=== PATIENT | female | born 1955 | race Caucasian/White ===

== ENCOUNTER → 2019-03-11 09:32 | Outpatient (BNVA) | payer MEDICAID, SELFPAY | PROVIDERS: Family Provider Nurse Practitioner; PCP Nurse Practitioner; Visit Provider Nurse Practitioner Family | DX: R51 Headache (principal); R82.90 Unspecified abnormal findings in urine | CPT/HCPCS: 81003 ==

== ENCOUNTER 2019-04-03 12:02 | Outpatient (CLI) | payer MEDICAID, SELFPAY ==
--- NOTE | 2019-04-03 12:30 | XRR_ITS ---
PROCEDURE INFORMATION: Exam: XR Abdomen, 1 View Exam date and time: 04/03/2019 12:27 PM Age: 63 years old Clinical indication: Other: Left flank pain; Prior surgery; Surgery date: 6+ months; Surgery type: Hysto, appy TECHNIQUE: Imaging protocol: XR of the abdomen. Views: Frontal supine view of the abdomen. 1 View. COMPARISON: CR XR KUB [id number] 05/12/2018 12:18 PM FINDINGS: Gastrointestinal tract: Unremarkable. No bowel dilation. Intraperitoneal space: Right mid abdominal bilateral upper pelvic surgical clips. Organs: The gallbladder is likely surgically absent, with metallic clips overlying the gallbladder fossa. Vasculature: Right pelvic phleboliths. Bones/joints: No acute abnormality identified. XR/XR KUB [id number] IMPRESSION: 1. No acute abdominal or pelvic abnormality identified. 2. Prior cholecystectomy. 3. Additional postoperative changes as above.
== END 2019-04-03 12:03 | disposition home or self-care (01) ==
LOC: RAD 12:14
PROVIDERS: Family Provider Nurse Practitioner; PCP Nurse Practitioner; Visit Provider Nurse Practitioner Family
DX: R10.9 Unspecified abdominal pain (principal); Z90.49 Acquired absence of other specified parts of digestive tract; Z87.442 Personal history of urinary calculi
CPT/HCPCS: 74018; 81001

== ENCOUNTER 2019-04-17 12:22 | Outpatient (CLI) | payer MEDICAID, SELFPAY ==
--- NOTE | 2019-04-17 12:30 | XR_ITS ---
WS: [id number] KUB, 04/17/2019 Clinical Data: Flank Pain Comparison: KUB, 04/03/2019 Findings: No abnormal intraabdominal masses or calcifications are seen. There is no dilatated small bowel or ev idence of obstruction. There is fecal material in a sending colon, transverse colon, and descending colon. There are surgica l clips on both sides of the abdomen. Clips from a cholecystectomy are noted. No renal or ureteral ca lculi are seen. There is a phlebolith in the right side of the true pelvis. Degenerative changes of t he L4-L5 disc level and L5 vertebral body are noted. XR/XR KUB [id number] Impression: Moderate amount of fecal material throughout colon.
== END 2019-04-17 12:23 | disposition home or self-care (01) ==
LOC: RAD 12:23
PROVIDERS: Family Provider Nurse Practitioner; PCP Nurse Practitioner; Visit Provider Urology
DX: R10.9 Unspecified abdominal pain (principal)
CPT/HCPCS: 74018; 81001; 82365

== ENCOUNTER 2019-08-25 09:01 | Outpatient (CLI) | payer MEDICAID, SELFPAY ==
--- NOTE | 2019-08-25 09:10 | MM_ITS ---
WS: [id number] RIGHT DIGITAL MAMMOGRAPHY WITH CAD CLINICAL INFORMATION: HX OF BREAST C COMPARISON: February 02, 2018 TECHNIQUE: 6 views of the right breast were obtained. FINDINGS: Scattered fibroglandular densities of the right breast. Right breast implant. Implant appears slightl y decompressed with slight capsular irregularity in particular on the MLO view compared to 2018 sugge stive of partial decompression. Recommend clinical correlation. No suspicious focal mass, asymmetry, calcifications, or architectural distortion. No evidence of cait gnancy. MM/[place] [id number] IMPRESSION: BI-RADS: 2-Benign FOLLOW UP: 1 Year Follow-up Recommend return to annual diagnostic mammography. Right breast implant appears slightly decompressed compared to 2018. Recommen d clinical correlation.
== END 2019-08-25 09:02 | disposition home or self-care (01) ==
PROVIDERS: PCP Family Medicine; Visit Provider Family Medicine
DX: Z85.3 Personal history of malignant neoplasm of breast (principal)
CPT/HCPCS: 77065

== ENCOUNTER 2023-08-10 15:19 | Emergency (ER) | payer MEDICARE, MEDICAID, SELFPAY ==
[2023-08-10] VITALS (12 sets, daily range): BP systolic 112–165; BP diastolic 53–84; PULSE 65–70; RESP 16–18; TEMP 37; O2SAT 95–98; BMI 36.0
--- NOTE | 2023-08-10 16:34 | ECG_ITS ---
[facility] Test Date: 2023-08-10 Pat Name: Deidre Bryant Department: Room: Gender: Female [employer]: : 1955 Requested By: Khalif Mane Order Number: [id number] Vargas MD: Mark Dennis M.D. Measurements Intervals [place] Rate: 61 P: 54 UT: 151 QRS: -51 QRSD: 129 T: 5 QT: 462 QTc: 469 Interpretive Statements SINUS RHYTHM RIGHT BUNDLE BRANCH BLOCK [120+ ms QRS DURATION, UPRIGHT V1, 40+ ms S IN I/aVL/V4/V5/V6] LEFT ANTERIOR FASCICULAR BLOCK [QRS AXIS <= -45, QR IN I, RS IN II] MODERATE VOLTAGE CRITERIA FOR LVH, CONSIDER NORMAL VARIANT [MEETS CRITERIA IN ONE OF: R(aVL), S(V1), R(V5), R(V5/V6)+S(V1)] Compared to ECG 11/27/2018 14:54:29 Right bundle-branch block now present Left anterior fascicular block now present Sinus bradycardia no longer present Left-axis deviation no longer present Incomplete right bundle-branch block no longer present Electronically Signed On 08-10-2023 16:44:06 CDT by Mark Dennis M.D. [email or web address]
--- NOTE | 2023-08-10 17:05 | XRR_ITS ---
PROCEDURE INFORMATION: Exam: XR Chest Exam date and time: 08/10/2023 5:17 PM Age: 68 years old Clinical indication: Other: High blood pressure; Additional info: HTN TECHNIQUE: Imaging protocol: Radiologic exam of the chest. Views: 1 view. COMPARISON: CR XR chest 1V [id number] 11/27/2018 12:05 PM FINDINGS: Lungs: Unremarkable. No consolidation. Pleural spaces: Unremarkable. No pleural effusion. No pneumothorax. Heart/Mediastinum: Unremarkable. No cardiomegaly. Bones/joints: Visualized osseous structures show no acute abnormality. Other findings: No significant change with prior exam. XR/XR chest 1V portable [id number] IMPRESSION: No acute cardiopulmonary abnormality.
--- NOTE | 2023-08-10 17:05 | CTR_ITS ---
PROCEDURE INFORMATION: Exam: CT Head Without Contrast Exam date and time: 08/10/2023 5:14 PM Age: 68 years old Clinical indication: Pain; Headache; Patient HX: High BP TECHNIQUE: Imaging protocol: Computed tomography of the head without contrast. Radiation optimization: All CT scans at this facility use at least one of these dose optimization techniques: automated exposure control; mA and/or kV adjustment per patient size (includes targeted exams where dose is matched to clinical indication); or iterative reconstruction. COMPARISON: CT head wo con* [id number] 11/27/2018 12:12 PM RADIATION DOSE METRICS: Total DLP (mGy-cm): 1064 FINDINGS: Brain: No intracranial hemorrhage or hematoma is seen. No mass effect or shift of midline structures. No findings to indicate territorial or large vessel ischemic change or infarct. No significant change with prior exam. Cerebral ventricles: No ventriculomegaly. Paranasal sinuses: Visualized sinuses are unremarkable. No fluid levels. Mastoid air cells: Visualized mastoid air cells are well aerated. Bones: Bone windows of the skull show no acute abnormality. Soft tissues: Unremarkable. CT/CT head wo con* [id number] IMPRESSION: No acute intracranial abnormality.
--- NOTE | 2023-08-10 17:07 | W.ED.GENADLT ---
HPI - General Adult General: Chief complaint: General Medical Stated complaint: High bp, ringing in ears Time Seen by Provider: 08/10/23 15:31 Source: patient and family Mode of arrival: ambulatory History of Present Illness: This patient made her way to the emergency department at the request of her primary care clinic. The patient has a longstanding history of hypertension that is being treated with medications. She states that she awoke feeling in her normal state of health today but did not take any of her morning medications as she was driving to [place] for dental work this morning. Upon arrival at the dentist office in [place] where she was scheduled for a procedure that required sedation she was noted to have an elevated blood pressure they are greater than 200 and at that point they declined to provide sedation and/or further treatment. She also related on her way back home to her [place] she called her doctor who told her to make her way to the emergency department. Patient denied any concomitant headache shortness of breath or other constitutional symptoms. She normally is faithful to her medications as prescribed. relates that she seemed kind of out of it a little bit throughout the day. He states that she was outside most of the day and did not drink fluids most of the day until she got in the house. He states that she appeared to be very overheated and very red to him. Patient has a history of chronic pain issues as well as peripheral neuropathy for which she is treated as well. No history of focal neurologic symptoms etc. Associated symptoms: Deny chest pain, confusion, dyspnea, nausea, rash, palpitations, syncope or vomiting Review of Systems Const: Denies: fever(s), chills or body aches Eyes: Denies: change in vision ENMT: Denies: throat pain, odynophagia, nasal discharge or nasal congestion Card: Denies: chest pain, palpitations, syncope or pre-syncope Resp: Denies: dyspnea, productive cough or non-productive cough GI: Denies: abdominal pain, nausea or vomiting : Denies: flank pain, difficulty voiding, dysuria or urinary frequency Musc: Denies: neck pain, back pain, extremity pain or extremity swelling Skin/Breast: Denies: rash, pruritus or erythema Neuro: Denies: numbness in extremities, weakness in extremities, dizziness, vertigo or confusion [facility] ED PFSH: Medical History Urolithiasis History of uterine prolapse Surgical History S/P rotator cuff repair S/P left mastectomy S/P cholecystectomy S/P appendectomy S/P hysterectomy S/P carpal tunnel release Family History Father , AT AGE 78 METASTATIC BLADDER CANCER Cancer Mother Cancer BREAST CANCER Social History Smoking and tobacco/nicotine status: never used tobacco/nicotine Second hand smoke exposure: No Alcohol intake: never Substance/Drug Use: never Caregiver/support person: Yes Lives independently: No Household members: spouse Marital status: Current occupational status: unemployed Do you think of yourself as: Straight/Heterosexual Physical Exam Narrative: EXAM NARRATIVE: The patient is alert she makes good eye contact speaks in goal-directed sentences. Appears comfortable. Const: COMMON NORMALS: no acute distress, patient oriented x3, healthy appearing and alert GENERAL APPEARANCE: cooperative and comfortable NUTRITIONAL APPEARANCE: overweight HENMT: COMMON NORMALS: normocephalic, EAC's normal, TM's normal bilaterally, Normal nasal mucous membranes and turbinates present and moist oral mucous membranes HEAD & SCALP: normocephalic NOSE: Normal nasal mucous membranes and turbinates present EXTERNAL AUDITORY CANAL: EAC's normal TYMPANIC MEMBRANE: TM's normal bilaterally Neuro: COMMON NORMALS: patient oriented x3 SENSORIUM/ORIENTATION: Yes alert Course Reevaluation(s): Reevaluation #1: This patient will be turned over for Dr. Jaramillo for final disposition pending laboratories and response to therapy. Time: 17:56 Vital Signs: Vital signs: Vital Signs Temperature 98.6 F 08/10/23 15:28 Pulse Rate 65 08/10/23 19:36 Respiratory Rate 18 08/10/23 19:36 Blood Pressure 118/80 08/10/23 19:36 Pulse Oximetry 97 08/10/23 19:36 Oxygen Delivery Me thod Room Air 08/10/23 15:28 MDM - General Adult Medical Decision Making This patient presented to the emergency department with concerns about elevation of blood pressure and with some concomitant feelings of feeling a bit off most of the day. She had not taken her blood pressure today prior to transporting yourself to [place] for a procedural sedation dental procedure which was declined because her blood pressure was markedly elevated. There was also question of whether she got overheated yesterday as she worked outside without much fluid intake during the day. Workup was initiated to ensure that there was no evidence of occult intracranial pathology and a noncontrast CT was obtained. Screening laboratories are obtained and she is being hydrated and reevaluated. She was normotensive in the emergency department on initial evaluation. No evidence of ongoing EMC. Pt discharged in stable condition. Lab Data I reviewed the patient's lab results. 08/10/23 17:35 08/10/23 17:35 Radiology Impressions Chest X-Ray 08/10/23 17:05 IMPRESSION: No acute cardiopulmonary abnormality. Head CT 08/10/23 17:05 IMPRESSION: No acute intracranial abnormality. Laboratory Results WBC 8.49 10^3/uL (3.29-11.43) 08/10/23 17:35 RBC 3.98 10^6/uL (3.85-5.65) 08/10/23 17:35 Hgb 12.00 g/dL (11.27-16.99) 08/10/23 17:35 Hct 36.8 % (36-47) 08/10/23 17:35 MCV 92.5 fl (85-98) 08/10/23 17:35 MCH 30.2 pg (27-33) 08/10/23 17:35 MCHC 32.6 g/dL (30-55) 08/10/23 17:35 RDW 14.2 % (12.1-15.1) 08/10/23 17:35 Plt Count 306 10^3/cmm (157-399) 08/10/23 17:35 MPV 10.0 fL (7.4-10.4) 08/10/23 17:35 Neut % (Auto) 61.8 % 08/10/23 17:35 Lymph % (Auto) 27.0 % 08/10/23 17:35 [place] % (Auto) 7.4 % 08/10/23 17:35 Eos % (Auto) 2.7 % 08/10/23 17:35 Baso % (Auto) 0.7 % 08/10/23 17:35 Neut # (Auto) 5.25 10^3/uL (1.8-7.7) 08/10/23 17:35 Lymph # (Auto) 2.3 10^3/uL (0.8-4.8) 08/10/23 17:35 [place] # (Auto) 0.6 10^3/uL (0.2-0.9) 08/10/23 17:35 Eos # (Auto) 0.2 10^3/uL (0.0-0.8) 08/10/23 17:35 Baso # (Auto) 0.1 10^3/uL (0.0-0.1) 08/10/23 17:35 Nucleated RBC % (auto) 0 % 08/10/23 17:35 Nucleated RBCs # 0.0 /100WBC 08/10/23 17:35 Sodium 136 mmol/L (136-145) 08/10/23 17:35 Potassium 3.8 mmol/L (3.5-5.1) 08/10/23 17:35 Chloride 98 mmol/L (98-107) 08/10/23 17:35 Carbon Dioxide 25 mmol/L (22-29) 08/10/23 17:35 Anion Gap 16.8 (5-19) 08/10/23 17:35 BUN 21 mg/dL (8-23) 08/10/23 17:35 Creatinine 0.9 mg/dL (0.5-0.9) 08/10/23 17:35 GFR Calculation 62.6 mL/min (90-130) L 08/10/23 17:35 Glucose 110 mg/dL (65-115) 08/10/23 17:35 Calculated Osmolality 286 mOsm/kg (285-295) 08/10/23 17:35 Calcium 9.3 mg/dL (8.5-10.5) 08/10/23 17:35 Total Bilirubin 0.4 mg/dL (0.15-1.2) 08/10/23 17:35 AST 25 U/L (0-32) 08/10/23 17:35 ALT 32 U/L (0-33) 08/10/23 17:35 Alkaline Phosphatase 105 U/L (35-105) 08/10/23 17:35 Creatine Kinase 93 U/L (26-192) 08/10/23 17:35 Total Protein 7.2 g/dL (6.6-8.7) 08/10/23 17:35 Albumin 4.2 g/dL (3.5-5.2) 08/10/23 17:35 Globulin 3.0 g/dL (1.3-4.6) 08/10/23 17:35 Urine Color Yellow (Yellow) 08/10/23 17:52 Urine Appearance Clear (CLEAR) 08/10/23 17:52 Urine pH 5 (5-7) 08/10/23 17:52 Ur Specific [place] 1.015 (1.005-1.030) 08/10/23 17:52 Urine Protein Neg (Negative) 08/10/23 17:52 Urine Glucose (UA) Norm (Normal) 08/10/23 17:52 Urine Ketones Negative (Negative) 08/10/23 17:52 Urine Blood 2+ (Negative) H 08/10/23 17:52 Urine Nitrate Negative (Negative) 08/10/23 17:52 Urine Bilirubin Neg (Negative) 08/10/23 17:52 Urine Urobilinogen Norm mg/dL (Negative) 08/10/23 17:52 Ur Leukocyte Esterase Negative (Negative) 08/10/23 17:52 Urine RBC 0-4 /hpf (0-2) H 08/10/23 17:52 Urine WBC None /hpf (0-5) 08/10/23 17:52 Ur Squamous Epith Cells None /hpf (0-5) 08/10/23 17:52 Ur Renal Epithelial Cell 0-4 /hpf 08/10/23 17:52 Amorphous Sediment Not Reportable 08/10/23 17:52 Urine Bacteria None /hpf (NONE) 08/10/23 17:52 Urine Mucus None /hpf 08/10/23 17:52 All radiology interpretation(s) finalized by discharge Discharge Plan Discharge Patient Disposition: Home Clinical Impression: Chronic hypertension, Dehydration Condition: Stable Prescriptions: No Action fluoxetine [Prozac] 40 mg capsule 40 mg PO BID mirtazapine [Remeron] 30 mg tablet 30 mg PO ONCE gabapentin 400 mg capsule 400 mg PO .daily sulindac 150 mg tablet 150 mg PO BID grape seed extract [Grape Seed] 50 mg capsule 150 mg PO QDAY red yeast rice 600 mg capsule 600 mg PO QDAY coenzyme Q10 60 mg tablet 60 mg PO QDAY tamsulosin 0.4 mg capsule 0.4 mg PO DAILY Qty: 30 2RF Discharge Orders: Discharge ED (Routine); Ordered 08/10/23 Ordered By: Karyn Longoria Referrals: Lauri Lucio FNP [Primary Care Provider] - Discharge Diet: Usual diet Discharge Activity: Resume usual activity Patient Instructions: Dehydration (ED), Hypertension (ED) Activity Restrictions/Additional Instructions: Thank you for choosing [facility] for your healthcare needs today. Please realize this is an emergency room and that we are providing you with a medical screening exam and this may not be complete and all inclusive of all the testing and or work up that you may need to determine your ailment or severity of your illness. You have been screened and evaluated and felt safe for discharge. Health conditions do change or evolve sometimes and as such it is important that you follow up with your Primary Doctor to be re checked, 3-5 days is a general good time frame for follow up. You are always welcome to return to the ED for re assessment if your symptoms are worsening or you have new concerns Coding Level of Care Code ED Risk And Insurance Consultant for Nasreen Schilling
[2023-08-10] MEDS: lactated ringers 1,000 ML 999 ML IV (17:41)
[2023-08-10 17:51] LABS: Basophils # 0.1 10^3/uL (0.0-0.1); Basophils % 0.7 %; Eosinophils # 0.2 10^3/uL (0.0-0.8); Eosinophils % 2.7 %; Hematocrit 36.8 % (36-47); Lymphocytes # 2.3 10^3/uL (0.8-4.8); Mean Corpuscular HGB Conc 32.6 g/dL (30-55); Mean Corpuscular Hemoglobin 30.2 pg (27-33); Mean Corpuscular Volume 92.5 fl (85-98); Monocytes # 0.6 10^3/uL (0.2-0.9); Monocytes % 7.4 %; Neutrophils # 5.25 10^3/uL (1.8-7.7); Neutrophils % 61.8 %; Nucleated Red Blood Cells % 0 %; Platelet Count 306 10^3/cmm (157-399); Red Blood Count 3.98 10^6/uL (3.85-5.65); Red Cell Distribution Width 14.2 % (12.1-15.1); White Blood Count 8.49 10^3/uL (3.29-11.43)
[2023-08-10 18:03] LABS: Alanine Aminotransferase 32 U/L (0-33); Albumin Level 4.2 g/dL (3.5-5.2); Alkaline Phosphatase 105 U/L (35-105); Anion Gap 16.8 (5-19); Aspartate Amino Transferase 25 U/L (0-32); Blood Urea Nitrogen 21 mg/dL (8-23); Calcium 9.3 mg/dL (8.5-10.5); Carbon Dioxide 25 mmol/L (22-29); Chloride 98 mmol/L (98-107); Creatine Phosphokinase 93 U/L (26-192); Creatinine Clr Calc Pharmacy 76.3831; Glomerular Filtration Rate 62.6 mL/min (90-130); Glucose 110 mg/dL (65-115); Osmolality Calculated 286 mOsm/kg (285-295); Potassium 3.8 mmol/L (3.5-5.1); Sodium 136 mmol/L (136-145); Total Bilirubin 0.4 mg/dL (0.15-1.2); Total Protein 7.2 g/dL (6.6-8.7)
[2023-08-10 18:58] LABS: Add Urine Microscopic? YES; Bilirubin Urine Neg (Negative); Blood Urine 2+ (Negative); Glucose Urine UA Norm (Normal); Ketones Urine Negative (Negative); Leukocyte Esterase Urine Negative (Negative); Nitrate Urine Negative (Negative); Protein Urine Neg (Negative); Specific Gravity, Urine 1.015 (1.005-1.030); Urine Appearance Clear (CLEAR); Urine Color Yellow (Yellow); Urobilinogen Urine Norm (Negative); pH Urine 5 (5-7)
[2023-08-10 18:59] LABS: RBC Urine 0-4 /hpf (0-2)
[2023-08-10 19:00] LABS: Add Urine Culture? No; Renal Epithelial Cells Urine 0-4 /hpf
== END 2023-08-10 19:38 | disposition home or self-care (01) ==
PROVIDERS: Emergency Medicine; Emergency Provider Emergency Medicine; PCP Nurse Practitioner
DX: I10 Essential (primary) hypertension (principal); E86.0 Dehydration
CPT/HCPCS: 70450; 71045; 80053; 81001; 82550; 85025; 93005; 99285; J7120

== ENCOUNTER → 2024-07-27 10:47 | Outpatient (BNVA) | payer MEDICARE, MEDICAID, SELFPAY | PROVIDERS: PCP Nurse Practitioner; Visit Provider Nurse Practitioner | DX: R10.9 Unspecified abdominal pain (principal) | CPT/HCPCS: 74018 ==